=== PATIENT | male | born 1960 | race Caucasian/White ===

== ENCOUNTER → 2016-06-20 | Outpatient (CLI) | payer BC ==
[~2016-06-20] MED LIST: AMOXICOT250 MG/5 M PO; ASPIRIN 81MG TA81 MG PO; ATORVASTATIN CA80 MG PO; CARVEDILOL 25MG25 MG PO; DOXYCYCLINE100 M1 PO; EFFIENT10 M2 PO; HABITROL21 MG/24 H TD; LISINOPRIL 20MG20 MG PO; LISINOPRIL10 MG PO; LOSARTAN POTAS100 MG PO; MEDROL DOSEPAK4 MG PO; NEXIUM40 MG PO; PREDNISONE 20MG20 MG PO; PROTONIX40 MG PO; TAMIFLU 75MG CA75 MG PO; VENTOLIN H0.09 MG/AC IH
[2016-06-20 13:47] LABS: BUN 16 mg/dL (7-18)
[2016-06-20 13:48] LABS: GFR (ESTIMATED) 69 ML/MIN (>60)
== END ==
LOC: CARL-LAB 07:05
PROVIDERS: Internal Medicine Adolescent Medicine
DX: I25.10 Atherosclerotic heart disease of native coronary artery without angina pectoris (principal)

== ENCOUNTER → 2017-01-22 | Outpatient (CLI) | payer BC | LOC: LAB 16:30 | DX: K21.9 Gastro-esophageal reflux disease without esophagitis (principal) ==

== ENCOUNTER → 2017-02-14 | Outpatient (CLI) | payer BC ==
--- NOTE | 2017-02-14 10:27 | RADIOLOGY REPORT PS360 ---
EXAM: Barium swallow/esophagram. INDICATION: ORDERING PHYSICIAN: Froilan White MD PATIENT AGE: 56 years COMPARISON: None TECHNIQUE: In the upright position the patient was observed to swallow barium in both the AP and lateral view. The cervical esophagus was examined under fluoroscopy with images obtained. The patient was then placed prone in the right anterior oblique position and was observed to swallow barium with Valsalva technique . FLUOROSCOPY TIME: 1 minute and 4 seconds FINDINGS: There was no evidence of aspiration. There was normal peristalsis. No filling defects or mucosal abnormalities. No masses or strictures. The esophagus is midline. IMPRESSION: Negative barium swallow.
--- NOTE | 2017-02-14 11:26 | RADIOLOGY REPORT PS360 ---
CT SINUS (MAX-FACIAL W/O CONT) CLINICAL INDICATION: CHRONIC LARYNGITIS ORDERING PHYSICIAN: Froilan White MD PATIENT AGE: 56 years COMPARISON: None TECHNIQUE:Axial, sagittal, and coronal images are generated and reviewed without contrast FINDINGS: There is mild mucosal thickening in the ethmoid sinuses. The maxillary, sphenoid, and frontal sinuses are unremarkable. There is mild leftward nasal septal deviation. The ostiomeatal units are patent. No mastoid effusion. The orbits are unremarkable. The visualized portions of the parotid glands and nasopharynx have an unremarkable appearance. The TMJs also are unremarkable. IMPRESSION: 1. Mild ethmoid sinus disease. 2. Mild leftward nasal septal deviation
== END ==
LOC: RAD 07:48
DX: J37.0 Chronic laryngitis (principal)

== ENCOUNTER → 2017-02-24 | Outpatient (CLI) | payer BC ==
--- NOTE | 2017-02-24 12:10 | RADIOLOGY REPORT PS360 ---
US ABD(COMPLETE-MULTI ORGANS HISTORY: Shortness of breath, evaluate for ascites R/O ASCITIES,HTN,DYSPNEA ORDERING PHYSICIAN: ANALIA EDMNOD MD PATIENT AGE: 56 years COMPARISON: None FINDINGS: PANCREAS:Poorly demonstrated LIVER:No focal liver lesions demonstrated. Homogeneous echogenicity. No intrahepatic biliary ductal dilatation evident. Mild fatty liver RIGHT KIDNEY:Unremarkable. Normal size and echogenicity. No hydronephrosis LEFT KIDNEY:Unremarkable. No hydronephrosis. Normal size and echogenicity. GALLBLADDER:No gallstones, gallbladder wall thickening, pericholecystic fluid, or biliary dilatation. AORTA:No evidence of aneurysmal dilatation. SPLEEN:Unremarkable. Normal size and echogenicity ASCITES:None demonstrated. IMPRESSION: 1. No ascites apparent. 2. Hepatic steatosis.
--- NOTE | 2017-02-24 12:10 | RADIOLOGY REPORT PS360 ---
US ABD(COMPLETE-MULTI ORGANS HISTORY: Shortness of breath, evaluate for ascites R/O ASCITIES,HTN,DYSPNEA ORDERING PHYSICIAN: ANALIA EDMOND MD PATIENT AGE: 56 years COMPARISON: None FINDINGS: PANCREAS:Poorly demonstrated LIVER:No focal liver lesions demonstrated. Homogeneous echogenicity. No intrahepatic biliary ductal dilatation evident. Mild fatty liver RIGHT KIDNEY:Unremarkable. Normal size and echogenicity. No hydronephrosis LEFT KIDNEY:Unremarkable. No hydronephrosis. Normal size and echogenicity. GALLBLADDER:No gallstones, gallbladder wall thickening, pericholecystic fluid, or biliary dilatation. AORTA:No evidence of aneurysmal dilatation. SPLEEN:Unremarkable. Normal size and echogenicity ASCITES:None demonstrated. IMPRESSION: 1. No ascites apparent. 2. Hepatic steatosis.
== END ==
LOC: RAD 08:09
DX: G47.33 Obstructive sleep apnea (adult) (pediatric) (principal); I10 Essential (primary) hypertension; E78.5 Hyperlipidemia, unspecified; R06.00 Dyspnea, unspecified

== ENCOUNTER → 2017-03-12 | Outpatient (CLI) | payer BC | LOC: RAD 13:26 | DX: Z87.891 Personal history of nicotine dependence (principal); Z12.2 Encounter for screening for malignant neoplasm of respiratory organs ==